=== PATIENT | female | born 1935 | race Caucasian/White ===

== ENCOUNTER 2019-10-12 06:48 | Emergency (ER) | payer MEDICARE, OTHER ==
[~2019-10-12] VITALS: Ht 160 cm; Wt 63.8 kg
[~2019-10-12 06:48] MED LIST: ASPI-496 PO; ATOR20TA37 PO; CARB1TAB2 PO; DONE10TA56 PO; ESCI20TA PO; LEVO75TA PO; LORA-445 PO; MIRT45TA3 PO; RIVA10TA2 PO; TELM20TA PO
[2019-10-12 07:35] LABS: MICROSCOPIC AUTO
--- NOTE | 2019-10-12 08:01 | NUR ---
PT UPRGHT ON GURNEY AWAKE & CALM, RESPONDS TO STAFF QUESTIONS, NAD, COMFORT MEASURES PROVIDED, DAUGHTER AT BS, CALL LIGHT WITHIN REACH.
--- NOTE | 2019-10-12 08:02 | NUR ---
PT TO CT
[2019-10-12 08:15] LABS: BASOPHILS # (AUTO) 0.05 x10^3/uL (0-0.1); BASOPHILS % (AUTO) 1 % (0-1); EOSINOPHILS # (AUTO) 0.08 x10^3/uL (0-0.4); EOSINOPHILS % (AUTO) 1 % (1-7); LYMPHOCYTES # (AUTO) 1.64 x10^3/uL (1-3.4); LYMPHOCYTES % (AUTO) 26 % (22-44); MD NO; MEAN CORPUSCULAR HEMOGLOBIN 31.7 pg (27.0-34.8); MEAN CORPUSCULAR HGB CONC 32.1 g/dL (32.4-35.8); MEAN CORPUSCULAR VOLUME 98.8 fL (80-100); MEAN PLATELET VOLUME 7.4 fL (7.4-10.4); MONOCYTES # (AUTO) 0.57 x10^3/uL (0.2-0.8); MONOCYTES % (AUTO) 9 % (2-9); NEUTROPHILS # (AUTO) 4.06 x10^3/uL (1.8-6.8); NEUTROPHILS % (AUTO) 64 % (42-75); PLATELET COUNT 301 x10^3/uL (130-400); RED BLOOD COUNT 4.23 x10^6/uL (3.82-5.3); RED CELL DISTRIBUTION WIDTH 13.4 % (9.6-15.2)
[2019-10-12 08:26] LABS: ALANINE AMINOTRANSFERASE 17 U/L (12-78); ALBUMIN 3.8 g/dL (3.4-5.0); ANION GAP 3 mmol/L (5-15); CALCIUM 9.3 mg/dL (8.5-10.1); CHLORIDE 117 mmol/L (98-107)
[2019-10-12 08:28] LABS: ALKALINE PHOSPHATASE 105 U/L (45-117); BILIRUBIN,TOTAL 0.5 mg/dL (0.2-1.0); CREATINE KINASE, TOTAL 141 U/L (26-192); CREATININE 0.98 mg/dL (0.55-1.02); TOTAL PROTEIN 6.8 g/dL (6.4-8.2)
--- NOTE | 2019-10-12 08:28 | NUR ---
PT RETURNED FROM CT
--- NOTE | 2019-10-12 08:30 | NUR ---
PT TO XR
[2019-10-12 08:51] VITALS: BP 154/68
--- NOTE | 2019-10-12 08:52 | NUR ---
BREAK RN: PT BACK FROM IMAGING. RESTING ON SEVERINO. NADN. YAO.
--- NOTE | 2019-10-12 09:53 | NUR ---
Patient daughter given discharge instructions and they have confirmed that they understand the instructions. Patient to DC desk via WC per family request.
== END 2019-10-12 10:19 | disposition home or self-care (01) ==
LOC: ED 07:41
DX: S02.2XXA Fracture of nasal bones, initial encounter for closed fracture (principal); S09.90XA Unspecified injury of head, initial encounter; R31.29 Other microscopic hematuria; E78.00 Pure hypercholesterolemia, unspecified; I10 Essential (primary) hypertension; E03.9 Hypothyroidism, unspecified; Z86.718 Personal history of other venous thrombosis and embolism; Z88.2 Allergy status to sulfonamides; W18.30XA Fall on same level, unspecified, initial encounter; Y93.89 Activity, other specified; Y92.009 Unspecified place in unspecified non-institutional (private) residence as the place of occurrence of the external cause; Y99.8 Other external cause status
CPT/HCPCS: 36415; 70450; 70486; 72125; 80053; 81001; 82550; 85025; 99285